=== PATIENT | male | born 1940 | race Caucasian/White ===

== ENCOUNTER 2021-05-04 09:41 | Emergency (ER) | payer OTHER ==
[~2021-05-04] VITALS: Ht 170.2 cm; Wt 83.9 kg
[~2021-05-04 09:41] MED LIST: ASCO-5 PO; ATOR10TA PO; BISA-227 RC; FERR-18 PO; FLUO10CA21 PO; IV Zosyn IV; LACT1TAB38 PO; MAGN400S29 PO; MELA3TER PO; PANT40EC56 PO; POTA20PA PO; SOTA80TA PO; VITA-16 PO; [UNRECOGNIZED DRUG - CODE] PO; [UNRECOGNIZED DRUG - CODE] PO
[2021-05-04 09:46] VITALS: BP 136/68
--- NOTE | 2021-05-04 10:48 | NUR ---
Patient from [facility] onto bed 07.
--- NOTE | 2021-05-04 10:50 | NUR ---
[facility]
--- NOTE | 2021-05-04 10:54 | NUR ---
80 y/o M BIBA from [facility] c/o head laceration s/p fall from bed this morning. Per EMS, patient was being changed by staff when he had a mechanical fall from bed, striking his head onto the wall. Patient presents with 1" forehead laceration; +hematoma golf ball size. Bleeding controlled by gauze/padding. Laceration care performed and laceration irrigated with NS 0.9%. Patient presents A&Ox4 normal mentation at this time. EMS states patient without LOC or seizures prior to fall. Pt placed into a gown. Bed locked in lowest position, side rails x 2 for pt safety. Denies nausea, vomiting, other injury, pain. PMH: CVA, RECURRENT TIA, ANEMIA, HTN, HEMIPLEGIA, HEMIPARESIS, A FIB MEDS: SEE LIST NKA
--- NOTE | 2021-05-04 11:16 | NUR ---
Patient back from CT/RAD via gurney; placed back onto cardiac specialist. Bed locked in lowest position, side rails x 2, call light in reach.
--- NOTE | 2021-05-04 11:25 | NUR ---
PATIENT IRRIGATED WITH 30ML NS 0.9% FLUSH AND DEBRIDED; BLEEDING CONTROLLED; NON-ADHERENT PAD APPLIED. PATIENT DENIES PAIN AT THIS TIME.
--- NOTE | 2021-05-04 11:39 | NUR ---
Called patient's nurse (Mary) at [facility] who states patient is: COVID fully vaccinated Pfizer: 1st dose 09/2020; 2nd dose 10/09/2020. Unknown tetanus
--- NOTE | 2021-05-04 11:49 | NUR ---
Signature obtained for TDAP consent form
--- NOTE | 2021-05-04 11:50 | NUR ---
Patient resting in position of comfort. monitor worker in place. VSS; respirations even/unlabored. Bed locked in lowest position, side rails x 2, call light in reach.
--- NOTE | 2021-05-04 12:50 | NUR ---
Patient resting with both eyes open. Emery provided. child monitor in place. VSS; respirations even/unlabored. Bed locked in lowest position, side rails x 2, call light in reach.
[2021-05-04] MEDS ORDERED: LIDOCAINE 2% 100 MG/5 ML SYR IVP ONE (12:51)
[2021-05-04] MEDS ORDERED: LIDOCAINE MPF 1% 5 ML ONE (12:59)
[2021-05-04] MEDS ORDERED: BACITRACIN OINT 500 UNITS/GM PKT TP ONE ×2 (13:14→13:15)
[2021-05-04] MEDS ORDERED: LIDOCAINE MPF 1% 10 MG/ML VIAL INJ ONE (13:15)
--- NOTE | 2021-05-04 13:15 | NUR ---
Dr. Dempsey is at bedside for laceration repair
--- NOTE | 2021-05-04 13:45 | NUR ---
Patient denies any pain at this time. All pt needs met.
--- NOTE | 2021-05-04 14:30 | NUR ---
Patient to be transferred to [facility]. Is being transferred due to [facility] being home. Patient belongings inventoried and will be sent with patient. Copy of nursing notes, lab reports, EKG, Physicians Orders and X-rays to be sent with patient. [facility] has been called for transfer. ETA is 1500.
[2021-05-04 14:32] VITALS: BP 110/54
--- NOTE | 2021-05-04 14:45 | NUR ---
Patient resting with both eyes closed. athletic monitor in place. VSS; respirations even/unlabored. Bed locked in lowest position, side rails x 2, call light in reach.
--- NOTE | 2021-05-04 15:10 | NUR ---
[facility] at bedside for tranportation home. Report given.
== END 2021-05-04 15:10 | disposition home or self-care (01) ==
LOC: MED 09:41
DX: S01.81XA Laceration without foreign body of other part of head, initial encounter (principal); I10 Essential (primary) hypertension; D64.9 Anemia, unspecified; K21.9 Gastro-esophageal reflux disease without esophagitis; Z86.73 Personal history of transient ischemic attack (TIA), and cerebral infarction without residual deficits; Z79.899 Other long term (current) drug therapy; Z98.890 Other specified postprocedural states; W19.XXXA Unspecified fall, initial encounter; Y93.89 Activity, other specified; Y92.89 Other specified places as the place of occurrence of the external cause; Y99.8 Other external cause status
CPT/HCPCS: 12002; 70450; 71045; 72125; 72170; 90471; 90715; 99285; J2001

== ENCOUNTER 2022-04-29 10:19 | Outpatient (CLI) | payer OTHER | END 2022-04-29 20:29 | disposition home or self-care (01) | LOC: MRD 10:19 | PROVIDERS: ATTEND Internal Medicine Hematology & Oncology | DX: I31.3 Pericardial effusion (noninflammatory) (principal); N28.1 Cyst of kidney, acquired; M47.816 Spondylosis without myelopathy or radiculopathy, lumbar region; I70.0 Atherosclerosis of aorta; N28.89 Other specified disorders of kidney and ureter; M48.56XA Collapsed vertebra, not elsewhere classified, lumbar region, initial encounter for fracture; K42.9 Umbilical hernia without obstruction or gangrene; M47.814 Spondylosis without myelopathy or radiculopathy, thoracic region; Z90.49 Acquired absence of other specified parts of digestive tract | CPT/HCPCS: 71260; Q9967 ==

== ENCOUNTER 2023-09-27 09:32 | Outpatient (CLI) | payer OTHER | END 2023-09-27 20:06 | disposition home or self-care (01) | LOC: MRD 09:32 | PROVIDERS: ATTEND Internal Medicine Hematology & Oncology | DX: C18.9 Malignant neoplasm of colon, unspecified (principal); M48.55XA Collapsed vertebra, not elsewhere classified, thoracolumbar region, initial encounter for fracture; I70.0 Atherosclerosis of aorta; M47.815 Spondylosis without myelopathy or radiculopathy, thoracolumbar region; Z90.49 Acquired absence of other specified parts of digestive tract | CPT/HCPCS: 71260; 74177; Q9967 ==